=== PATIENT | female | born 1940 ===

== ENCOUNTER 2021-03-16 15:03 | Outpatient (REF) | payer MEDICARE, BC, SELFPAY ==
[2021-03-16 20:17] LABS: HCT 39.1 % (36.0-46.0); HGB 12.3 g/dL (11.2-15.7); MCH 30.8 pg (27.0-33.0); MCHC 31.5 % (32.0-36.0); MCV 97.8 fL (80-95); Platelet Count 216 10^3/uL (130-400); RDW 13.5 % (11.7-14.6); RDW-SD 49.1 fL; WBC 6.57 10^3/uL (4.4-10.8)
[2021-03-16 20:34] LABS: Ferritin 110 ng/mL (8-252)
== END 2021-03-16 15:04 | disposition home or self-care (01) ==
LOC: NCHCN 15:03
PROVIDERS: Visit Provider Nurse Practitioner Community Health
DX: G47.62 Sleep related leg cramps (principal); R42 Dizziness and giddiness
CPT/HCPCS: 85027; 82728

== ENCOUNTER 2023-05-22 19:36 | Outpatient (REF) | payer MEDICARE, BC, SELFPAY ==
[2023-05-22 15:59] LABS: FREE T4 1.07 ng/dL (0.76-1.46)
== END 2023-05-22 19:37 | disposition home or self-care (01) ==
LOC: NCHCN 19:36
PROVIDERS: Visit Provider Family Medicine
DX: R94.6 Abnormal results of thyroid function studies (principal)
CPT/HCPCS: 84439